=== PATIENT | male | born 1985 | race Caucasian/White ===

== ENCOUNTER 2016-09-18 13:31 | Emergency (ER) | payer OTHER ==
[~2016-09-18] VITALS: Ht 154.9 cm; Wt 63.5 kg
[2016-09-18 14:01] VITALS: BP 151/87
[2016-09-18] MEDS ORDERED: ONDANSETRON 4 MG ODT PO ONE (16:35)
--- NOTE | 2016-09-18 16:37 | NUR ---
Patient ambulated to bed 4. RN evaluating patient at bedside.
--- NOTE | 2016-09-18 16:38 | NUR ---
31/M C/O N/V/D X 2 DAYS; SKIN IS PINK/WARM/DRY; AAOX4 WITH EVEN AND STEADY GAIT; LUNGS CLEAR BL; HR EVEN AND REGULAR; PT DENIES ANY FEVER, CP, SOB, OR COUGH AT THIS TIME; PATIENT STATES PAIN OF 10/10 AT THIS TIME; VSS; PATIENT POSITIONED FOR COMFORT; HOB ELEVATED; BEDRAILS UP X2; BED DOWN. ER MD MADE AWARE OF PT STATUS.
--- NOTE | 2016-09-18 16:38 | NUR ---
31/M C/O N/V/D X 2 DAYS; SKIN IS PINK/WARM/DRY; AAOX4 WITH EVEN AND STEADY GAIT; LUNGS CLEAR BL; HR EVEN AND REGULAR; PT DENIES ANY FEVER, CP, SOB, OR COUGH AT THIS TIME; PATIENT STATES HAS CRAMPING PAIN OF 10/10 AT THIS TIME; VSS; PATIENT POSITIONED FOR COMFORT; HOB ELEVATED; BEDRAILS UP X2; BED DOWN. ER MD MADE AWARE OF PT STATUS.
--- NOTE | 2016-09-18 16:49 | NUR ---
Dr. Ortega evaluating patient at bedside.
[2016-09-18] MEDS ORDERED: NACL 0.9% 1,000 ML IV ONE (16:55)
[2016-09-18] MEDS ORDERED: HYDROcodone/APAP 5/325 MG 1 TAB TAB PO ONE (16:55)
[2016-09-18 17:20] LABS: HEMOGLOBIN 16.3 g/dL (12.0-18.0); MEAN CORPUSCULAR HEMOGLOBIN 28 pg (27-31); MEAN CORPUSCULAR HGB CONC 33 g/dL (33-37); MEAN CORPUSCULAR VOLUME 87 fL (80-94); PLATELET COUNT (AUTO) 287 K/uL (140-450); RED BLOOD CELL COUNT(AUTO) 5.73 MIL/uL (4.20-6.10); RED CELL DISTRIBUTION WIDTH 12.9 % (11.6-13.7); WHITE BLOOD COUNT (AUTO) 7.1 K/uL (4.8-10.8)
[2016-09-18 17:31] LABS: APPEARANCE,URINE CLEAR (CLEAR); BILIRUBIN,URINE NEGATIVE (NEGATIVE); BLOOD, URINE 1+ (NEGATIVE); COLOR,URINE YELLOW (YELLOW); LEUKOCYTE ESTERASE ,URINE NEGATIVE (NEGATIVE); NITRITE, URINE NEGATIVE (NEGATIVE); PROTEIN,URINE NEGATIVE (NEGATIVE); UGLUCOSE NEGATIVE (NEGATIVE); UROBILINOGEN,URINE 0.2 EU/dL (0.2 - 1)
[2016-09-18 17:32] LABS: ANION GAP 12.2 (8-16); CALCIUM 8.3 mg/dL (8.5-10.1); CREATININE 0.8 mg/dL (0.6-1.3); POTASSIUM 4.2 mmol/L (3.5-5.1)
[2016-09-18 17:38] LABS: ALBUMIN 3.8 g/dL (3.4-5.0); TOTAL BILIRUBIN 0.4 mg/dL (0.0-1.0); TOTAL PROTEIN, SERUM 8.4 g/dL (6.4-8.2)
[2016-09-18 17:41] LABS: RBC,URINE 0-3 /HPF (0-5); WBC,URINE 0-3 /HPF (0-5)
[2016-09-18 17:42] LABS: BACTERIA,URINE RARE /HPF (None Seen); MUCUS,URINE 4+ /LPF (None Seen); SQUAMOUS EPITHELIAL CELL,UR None Seen /LPF (0-3 (FEW))
[2016-09-18 17:43] LABS: EOSINOPHILS % (MANUAL) 20 % (0-4); LYMPHOCYTES % (MANUAL) 23 % (20-46); MONOCYTES % (MANUAL) 4 % (5-12); NEUTROPHILS % (MANUAL) 53 (43-65); PLATELET ESTIMATE ADEQUATE
--- NOTE | 2016-09-18 18:03 | NUR ---
Patient taken to CT scan via wheelchair by tech.
--- NOTE | 2016-09-18 18:13 | NUR ---
Patient returned from CT scan. RN re-evaluating patient at bedside.
[2016-09-18] MEDS ORDERED: MORPHINE SULFATE 4 MG/ML SYR IVP ONE (19:05)
--- NOTE | 2016-09-18 19:17 | NUR ---
Pt report given to GUANACO Angulo . Transfer of care at this time.
--- NOTE | 2016-09-18 19:34 | NUR ---
RECEIVED REPORT FROM MARJAN BLANC.
[2016-09-18 21:10] VITALS: BP 139/81
--- NOTE | 2016-09-18 21:10 | NUR ---
Patient discharged with v/s stable. Written and verbal after care instructions given and explained BY DR PIMENTEL. Patient alert, oriented and verbalized understanding of instructions. Ambulatory with steady gait. All questions addressed prior to discharge. ID band removed. Patient advised to follow up with PMD. Rx of CIPRO AND NORCO given. Patient educated on indication of medication including possible reaction and side effects. Opportunity to ask questions provided and answered.
[2016-09-21 09:01] LABS: HIV 1/0/2 ABS, QUAL POSITIVE (Non Reactiv)
== END 2016-09-18 21:10 | disposition home or self-care (01) ==
LOC: MED 13:31
DX: K52.9 Noninfective gastroenteritis and colitis, unspecified (principal)
CPT/HCPCS: 36415; 74177; 80053; 81001; 83690; 85025; 86702; 86703; 96361; 96374; 99285; J2270; J7030; Q9967; S0119

== ENCOUNTER 2020-12-11 17:39 | Emergency (ER) | payer OTHER ==
[~2020-12-11] VITALS: Ht 167.6 cm; Wt 61.7 kg
[2020-12-11 17:53] VITALS: BP 155/96
--- NOTE | 2020-12-11 18:02 | NUR ---
[facility]: RIGHT EYE 20/50, LEFT EYE 20/20, BOTH EYES 20/13
--- NOTE | 2020-12-11 18:03 | NUR ---
TENT 2
[2020-12-11] MEDS ORDERED: ACET-9496 PO (18:27)
[2020-12-11 18:44] VITALS: BP 155/96
--- NOTE | 2020-12-11 18:45 | NUR ---
Patient discharged with v/s stable. Written and verbal after care instructions given and explained. Patient alert, oriented and verbalized understanding of instructions. Ambulatory with steady gait. All questions addressed prior to discharge. ID band removed. Patient advised to follow up with PMD. Rx of EXCEDRIN EXTRA STRENGTH given. Patient educated on indication of medication including possible reaction and side effects. Opportunity to ask questions provided and answered.
== END 2020-12-11 18:45 | disposition home or self-care (01) ==
LOC: MED 17:39
DX: G43.909 Migraine, unspecified, not intractable, without status migrainosus (principal); H57.11 Ocular pain, right eye; Z79.899 Other long term (current) drug therapy
CPT/HCPCS: 99282